=== PATIENT | female | born 1960 | race Caucasian/White ===

== ENCOUNTER 2024-02-05 13:12 | Outpatient (REF) | payer MEDICARE, BC, SELFPAY ==
[2024-02-05 13:53] LABS: Hematocrit 42.8 % (33.0-51.0); Hemoglobin* 14.1 gm/dL (12.0-16.0); Mean Corpuscular HGB Conc 33 gm/dL (32-36); Mean Corpuscular Hemoglobin 34 pg (26-34); Mean Corpuscular Volume 104 fL (80-100); Platelet Count* 316 K/uL (140-440); Red Blood Count 4.11 m/uL (4.00-5.20); White Blood Count* 5.77 K/uL (4.50-11.00)
[2024-02-05 14:13] LABS: Slide Review Reflex No
[2024-02-05 15:04] LABS: Iron* 123 ug/dL (37-170)
[2024-02-05 15:14] LABS: Percent Iron Saturation 33 % (20-50); Total Iron Binding Capacity 375 ug/dL (265-497)
[2024-02-05 20:29] LABS: Ferritin* 52.5 ng/mL (11.1-264.0)
== END 2024-02-05 13:13 | disposition home or self-care (01) ==
LOC: NPINS 13:12
PROVIDERS: Visit Provider Family Medicine
DX: F51.01 Primary insomnia (principal)
CPT/HCPCS: 82728; 83540; 83550; 85027